=== PATIENT | female | born 1950 | race African-American/Black ===

== ENCOUNTER → 2017-05-24 | Outpatient (CLI) | payer OTHER, BC ==
[~2017-05-24] VITALS: Ht 177.8 cm; Wt 94.6 kg
[~2017-05-24] MED LIST: ALEVE220 MG PO; AMBIEN 5 MG TABL5 M1; BENICAR20 MG PO; LEXAPRO 10 MG T10 M1 PO; LOPRESSOR50 PO; MOBIC15 MG PO; PRAVACHOL20 MG PO; RISPERDAL2 MG PO
--- NOTE | ~2017-05-24 | HPC ---
[facility] [place] [address] PAIN MANAGEMENT CONSULTATION Name: SHANE BAÑUELOS Room #: REG [facility] Elio#: [id number] Admission: 05/24/17 Attend Phys: Jovani Garcia DO Discharge: Date of : 54 Report #: [id number] THIS REPORT FOR: //name// CC: JOSIAS MARSHALL DATE OF SERVICE: 05/24/2017 The patient is a pleasant 66-year-old female, prior seen back in July for lumbar radiculopathy, had some right SI mediated pain, lumbosacral spondylosis. Somewhat lost to follow up. Returns to pain clinic today with a request from Dr. Deepak Marshall from [facility] for a right SI joint injection under fluoroscopy without steroid. The patient is being considered for percutaneous SI fusion. She prior had 80% relief following a right SI joint injection. this lasted > 6 weeks. PHYSICAL EXAMINATION: Shows tenderness over the right SI joints with positive Og test. The patient is legally blind. She is status post right total hip arthroplasty. Because of total hip arthroplasty, Og test was not accomplished. ASSESSMENT: Symptomatic right sacroiliac joint pain. RECOMMENDATION: Right SI joint local anesthetic alone injection without benefit of steroids. PROCEDURE: After written informed consent was obtained, the patient was taken to the fluoroscopy suite and placed in prone position. After sterile prep and drape, skin wheal was raised. A 22-gauge stylet needle was placed to contact the inferior aspect of the right SI joint. Negative aspiration was accomplished. 1-2 mL of Omnipaque was injected, which showed spread within the SI joint with trace spread outside the joint (less than 0.5 mL). This was followed with 1 mL of 50:50 mix of 0.5% preservative-free bupivacaine and 1.5% preservative-free Xylocaine with 1:200,000 epinephrine. Needle was removed. The area was cleansed, Band-Aids applied. The patient monitored for an appropriate period of time, discharged in good and stable condition. The patient reported only modest improvement of pain at 30 and 60 minutes. We will have her call back with an hourly score for the next 3 hours. <ELECTRONICALLY SIGNED> By: Jovani Garcia DO 05/26/17 [id number] Jovani Garcia DO /nt
[2017-05-24 13:54] VITALS: BP 127/85
== END | disposition home or self-care (01) ==
LOC: PAIN 07:28
DX: M53.3 Sacrococcygeal disorders, not elsewhere classified (principal); M47.26 Other spondylosis with radiculopathy, lumbar region; F17.200 Nicotine dependence, unspecified, uncomplicated; Z96.641 Presence of right artificial hip joint; Z98.890 Other specified postprocedural states; Z88.0 Allergy status to penicillin; Z79.899 Other long term (current) drug therapy